=== PATIENT | female | born 1970 | race African-American/Black ===

== ENCOUNTER 2019-08-24 14:05 | Emergency (ER) | payer MEDICAID, OTHER ==
[~2019-08-24] VITALS: Ht 154.9 cm; Wt 79.8 kg
[2019-08-24 14:08] VITALS: BP 202/131
[2019-08-24] MEDS ORDERED: predniSONE 20 MG TAB PO ONE (14:35)
[2019-08-24] MEDS ORDERED: IPRATROPIUM 0.02% 0.5 MG/2.5 ML NEBU INH ONE (14:35)
[2019-08-24] MEDS ORDERED: ALBUTEROL 0.083% 2.5 MG/3 ML NEBU INH ONE (14:35)
--- NOTE | 2019-08-24 14:45 | NUR ---
C/O ATYPICAL CP WITH SOB X 1 HOUR PRIOR TO ARRIVAL ELEVATED BP. PER PT HER MOTHER JUST RECENTLY PASSED. PMH- THYROID DISEASE, HTN, SCOLIOSIS
[2019-08-24 14:59] LABS: BASOPHILS # (AUTO) 0.1 K/uL (0.00-0.22); BASOPHILS % (AUTO) 0.9 % (0.0-2.0); EOSINOPHILS # (AUTO) 0.2 K/uL (0-0.4); EOSINOPHILS % (AUTO) 1.8 % (0.0-4.0); HEMATOCRIT 39.9 % (36-48); LYMPHOCYTES # (AUTO) 2.6 K/uL (2.5-16.5); LYMPHOCYTES % (AUTO) 25.7 % (20.5-51.1); MEAN CORPUSCULAR HEMOGLOBIN 30 pg (27-31); MEAN CORPUSCULAR HGB CONC 33 g/dL (33-37); MEAN CORPUSCULAR VOLUME 92.8 fL (80-94); MONOCYTES # (AUTO) 0.4 K/uL (0.8-1.0); MONOCYTES % (AUTO) 4.3 % (1.7-9.3); NEUTROPHILS # (AUTO) 6.9 K/uL (1.8-7.7); NEUTROPHILS % (AUTO) 67.3 % (42.2-75.2); PLATELET COUNT (AUTO) 221 K/uL (140-450); RED CELL DISTRIBUTION WIDTH 15.1 % (11.6-13.7); WHITE BLOOD COUNT (AUTO) 10.2 K/uL (4.8-10.8)
[2019-08-24 15:22] LABS: CARBON DIOXIDE 23.5 mmol/L (21-32); POTASSIUM 3.5 mmol/L (3.5-5.1)
[2019-08-24 17:56] VITALS: BP 178/79
--- NOTE | 2019-08-24 17:57 | NUR ---
Patient discharged with v/s stable. Written and verbal after care instructions given and explained. Patient alert, oriented and verbalized understanding of instructions. Ambulatory with steady gait. All questions addressed prior to discharge. ID band removed. Patient advised to follow up with PMD. Rx of ALBUTREROL given. Patient educated on indication of medication including possible reaction and side effects. Opportunity to ask questions provided and answered.
== END 2019-08-24 17:57 | disposition home or self-care (01) ==
LOC: MED 14:05
DX: R07.89 Other chest pain (principal); F17.210 Nicotine dependence, cigarettes, uncomplicated; I10 Essential (primary) hypertension; E07.9 Disorder of thyroid, unspecified; Z71.6 Tobacco abuse counseling
CPT/HCPCS: 36415; 71045; 80048; 84484; 85025; 93005; 94640; 99284; J7512; J7613; J7644; Q0092

== ENCOUNTER 2020-03-26 13:01 | Emergency (ER) | payer MEDICAID ==
[~2020-03-26] VITALS: Ht 124.5 cm; Wt 72.6 kg
[2020-03-26 13:41] VITALS: BP 185/145
--- NOTE | 2020-03-26 14:49 | NUR ---
PATIENT LEFT WITHOUT BEING SEEN BY DR. GRIMALDO. NO FURTHER CARE PROVIDED FOR PATIENT.
== END 2020-03-26 14:49 | disposition left against medical advice (07) ==
LOC: MED 13:01
DX: M79.602 Pain in left arm (principal); Z53.21 Procedure and treatment not carried out due to patient leaving prior to being seen by health care provider

== ENCOUNTER 2020-03-27 04:48 | Emergency (ER) | payer MEDICAID ==
[~2020-03-27] VITALS: Ht 149.9 cm; Wt 76.7 kg
[2020-03-27 04:54] VITALS: BP 199/100
--- NOTE | 2020-03-27 05:00 | NUR ---
PT AMBULATED TO ER BED 12 W/ STEADY GAIT.
[2020-03-27] MEDS ORDERED: CLONIDINE HYDROCHLORIDE 0.1 MG TAB PO ONE (05:05)
--- NOTE | 2020-03-27 05:10 | NUR ---
PT 49 Y/O FEMALE BIB SELF FOR C/O HAND PAIN S/P BEE STING X 2 DAYS AGO. PT NOTED WITH EDEMA IN L HAND AND WRIST WITH ITCHING. FIRM AND WARM TO TOUCH. PER PT SHE TOOK 2 ANTIBIOTICS WITH UNKNOWN NAME "TO HELP REDUCE SWELLING. " PT STATES PAIN IN HAND IS 10/10. PT BP 199/100. ERMD MADE AWARE AND GAVE NEW ORDERS. PT BED IS LOCKED AND IN LOWEST POSTION. MEDHX: HTN, ASTHMA ALLERGIES: NKA
--- NOTE | 2020-03-27 05:23 | NUR ---
ERMD AT BEDSIDE.
[2020-03-27] MEDS ORDERED: diphenhydrAMINE 50 MG/ML VIAL IM ONE (05:30)
--- NOTE | 2020-03-27 06:18 | NUR ---
XRAY AT BEDSIDE.
[2020-03-27] MEDS ORDERED: methylPREDNISolone SS 125 MG/2 ML VIAL IM ONE (06:45)
[2020-03-27] MEDS ORDERED: FAMOTIDINE 20 MG TAB PO ONE (06:45)
[2020-03-27 07:00] VITALS: BP 176/92
== END 2020-03-27 07:00 | disposition home or self-care (01) ==
LOC: MED 04:48
DX: M79.89 Other specified soft tissue disorders (principal); F17.200 Nicotine dependence, unspecified, uncomplicated; I10 Essential (primary) hypertension; E07.9 Disorder of thyroid, unspecified; Z88.5 Allergy status to narcotic agent
CPT/HCPCS: 73130; 96372; 99284; J1200; J2930; Q0092